=== PATIENT | male | born 1960 | race Two or more races ===

== ENCOUNTER 2018-12-14 06:51 | Day surgery (SDC) | payer MEDICARE, BC ==
[~2018-12-14] VITALS: Ht 177.8 cm; Wt 120.4 kg
[~2018-12-14 06:51] MED LIST: ACET325; ALPR.5 PO; BELPHEER PO; BISM87SU; CAND4 PO; DIPATRL; HYOS0.375T PO; LAMO100 PO; LITH300CA; LITH300ER PO; LORA1 PO; LOSA25 PO; MECL25 PO; ONDA8 PO; PRED20 PO; PROP80ER PO; RABE20 PO; RXDIPATR PO; VENL75ER PO
[2018-12-14] MEDS ORDERED: Synthroid100 MCG (07:35)
== END 2018-12-14 09:20 | disposition home or self-care (01) ==
LOC: ORSCSDS 06:51
PROVIDERS: Orthopaedic Surgery
PROC: 01N50ZZ Release Median Nerve, Open Approach (ICD-10-PCS; principal; 2018-12-14 08:20)
DX: G56.02 Carpal tunnel syndrome, left upper limb (principal); I10 Essential (primary) hypertension; G47.33 Obstructive sleep apnea (adult) (pediatric); E66.01 Morbid (severe) obesity due to excess calories; Z68.38 Body mass index [BMI] 38.0-38.9, adult; Z79.899 Other long term (current) drug therapy
CPT/HCPCS: J2250; J3010; J7120

== ENCOUNTER → 2019-02-28 | Outpatient (CLI) | payer MEDICARE, BC ==
[~2019-02-28] MED LIST changes: +ESCI20 PO; +Inderal40 MG PO; +LINE600 PO; +LOSARTAN POTAS100 MG PO; +Lamictal150 MG PO; +ROPI.25 PO; +Synthroid100 MCG; +TIROSINT200 MCG PO
== END | disposition home or self-care (01) ==
LOC: LAB 13:25 → LAB SHORT 13:25
DX: L08.0 Pyoderma (principal)
CPT/HCPCS: 87070; 87205

== ENCOUNTER 2019-03-27 19:16 | Inpatient (IN) | payer MEDICARE, BC ==
[~2019-03-27] VITALS: Ht 177.8 cm; Wt 123.0 kg
[~2019-03-27 19:16] MED LIST changes: +LEVSOD112 PO; -ROPI.25 PO; +Ropinirole HCl1 MG PO; -TIROSINT200 MCG PO
[2019-03-27] MEDS ORDERED: FOLI1 PO (19:49)
[2019-03-27] MEDS ORDERED: METTREX2.5 PO (19:49)
[2019-03-27 19:57] LABS: BASOPHILS ABSOLUTE AUTO 0.04 K/mm3 (0.00-0.23); BASOPHILS PERCENT AUTO 0 % (0-2); EOSINOPHILS ABSOLUTE AUTO 0.21 K/mm3 (0.00-0.68); EOSINOPHILS PERCENT AUTO 2 % (0-6); Hematocrit 45.4 % (37.0-53.0); Hemoglobin 14.7 g/dL (13.5-17.5); IMMATURE GRAN ABSOLUTE AUTO 0.13 K/mm3 (0.00-0.10); IMMATURE GRAN PERCENT AUTO 1 % (0-1); LYMPHOCYTES ABSOLUTE AUTO 2.71 K/mm3 (0.84-5.20); LYMPHOCYTES PERCENT AUTO 27 % (21-46); MONOCYTES ABSOLUTE AUTO 0.77 K/mm3 (0.16-1.47); MONOCYTES PERCENT AUTO 8 % (4-13); Mean Corpuscular HGB Conc 32.4 g/dL (31.5-36.5); Mean Corpuscular Volume 93 fL (80-100); NEUTROPHILS ABSOLUTE AUTO 6.13 K/mm3 (1.96-9.15); NEUTROPHILS PERCENT AUTO 61 % (41-73); Platelet Count 334 K/mm3 (150-400); RDW Coefficient Variation 12.5 % (11.7-14.2); RDW Standard Deviation 42.5 fL (35.1-46.3); White Blood Cell Count 9.99 K/mm3 (4.00-11.30)
[2019-03-27 20:29] LABS: Alanine Aminotransfer (ALT/SGP 42 U/L (12-78); Albumin, Blood 3.9 g/dL (3.4-5.0); Albumin/Globulin Ratio 1.1 (0.8-1.8); Alk Phos 85 U/L (50-136); Anion Gap 7 mmol/L (6-16); Aspartate Aminotrans (AST/SGOT 24 U/L (12-37); Bilirubin, Total 0.2 mg/dL (0.1-1.0); Blood Urea Nitrogen 20 mg/dL (8-24); Bun/Creatinine Ratio 17.9 (12.0-20.0); CO2, Blood 28 mmol/L (21-32); Chloride, Blood 104 mmol/L (98-108); Creatinine, Blood 1.12 mg/dL (0.60-1.20); Globulin, Blood 3.7 g/dL (2.2-4.0); Glomerular Filtration Rate >60 (60-); Glucose, Blood 148 mg/dL (70-99); Potassium, Blood 3.8 mmol/L (3.5-5.5); Sodium, Blood 139 mmol/L (136-145); Total Protein, Blood 7.6 g/dL (6.4-8.2); Troponin I <0.015 ng/mL (0.000-0.040)
[2019-03-27] MEDS ORDERED: IBUP400 PO (21:46)
[2019-03-27] MEDS ORDERED: CALCITRATE200 MG PO (21:46)
[2019-03-27 22:28] LABS: International Normalized Ratio 0.98; Prothrombin Time Results 10.4 Sec (9.7-11.5)
--- NOTE | 2019-03-27 23:51 | NUR ---
HEPARIN VERIFIED WITH JESSICA UPTON RN
[2019-03-28 01:52] LABS: CHOL/HDL RATIO 4.8; Cholesterol 143 mg/dL (50-200); HDL Cholesterol 30 mg/dL (>39); LDL/HDL RATIO 2.6; Low Density Lipoprotein Chol 77 mg/dL (0-110); Triglycerides 178 mg/dL (30-160); Very Low Density Lipoprot Chol 35 mg/dL (6-32)
--- NOTE | 2019-03-28 05:26 | NUR ---
assessed prior to am medication, no breathing, no lung or heart sound, no carotid pulse, no pupil response, informed family in room and charge nurse, cleaned up as much as possible, turned off iv pump and disconnected NC, offered condolances and assistance to family, closed door with fallen leaf
--- NOTE | 2019-03-28 07:18 | NUR ---
A+o, call light in reach, pain controlled with nitro and morphine, heparn drip, 2L via nc, able to make needs known, waiting for work up, walking rounds completed with day staff
--- NOTE | 2019-03-28 09:35 | NUR ---
CALLED HOSPITALIST PHARMACY NOTIFIED ME THAT THE METHOTREXATE DOSAGE FOR THIS PATIENT IS UNUSAL. I'VE CALLED THE HOSPITALIST AND LEFT A MESSAGE REGARDING THIS. PHARMACY WILL NOT ISSUE ME THE DRUG FOR ADMINISTRATION UNTIL VERIFIED AT THE CORRECT INTENDED DOSAGE BY THE PHYSICIAN.
--- NOTE | 2019-03-28 10:20 | NUR ---
CALLED [facility]/CALLED CONSULT - CARDIOLOGY:DR. RAGLAND HOSPITALIST REQUESTED I VERIFY METHOTREXATE DOSAGE W/PT'S PHARMACY. PHARMACY INFORMED ME THAT PT TAKES 5 TABLETS OF 2.5 MG ONCE A WEEK. INFORMED HOSPITALIST AND CHANGED OUR PHARMACY ORDER. HOSPITALIST REQUESTED I CALL CARDIOLOGY CONSULT:DR. RAGLAND AND INFORM HIM THAT THE PT IS STILL HAVING CHEST PAIN. I LEFT A MESSAGE WITH [facility] [employer] MACHINE OPERATOR. HOSPITALIST REQUESTED I CHANGE NITRO PASTE FROM ONE INCH TO AN INCH AND A HALF PER ADMINISTRATION. DOSAGE CHANGED WITH OUR PHARMACY.
--- NOTE | 2019-03-28 11:12 | NUR ---
Patient is lying in bed and alert with life partner, Don, bedside. Patient is kind and others focused and shares openly about his life and hira(Mormonism) journey. Patient spoke of the process of working through his fears while the pain and symptoms were intense. Patient stated that he is at peace with God and in his circumstances. I listened empathically,, reinforced helpful attitudes and practices, provided companionship and provided prayer. Patient responded well and showed signs of an elevated mood.
--- NOTE | 2019-03-28 17:41 | NUR ---
HANDOFF NOTE PT TRANSFERED TO [facility] FOR ANGIOGRAM WITHOUT INCIDENT. PERSONAL BELONGINGS GATHERED BY FAMILY AND TRANSPORTED BY THEM. PT TO BE TRANSFERED TO PCU FOLLOWING PROCEDURE. HANDOFF REPORT GIVEN TO PCU 12 NURSE [place]. INFORMED PCU NURSE OF PT'S DIAGNOSES, MEDICATIONS, HISTORY, AND OF CURRENT ANGIOGRAM BEING PERFORMED. PCU NURSE HAD NO FURTHER QUESTIONS.
--- NOTE | 2019-03-28 19:31 | NUR ---
the pt arrived from the heart center at 1815. Wound assessment of the right wrist has remained within normal expected limits post angio. Pt denies numbness, pain, tingling in the right arm and right hand. Denies chest pain, dyspnea. Vital signs have been stable. He ate dinner and drank cranberry juice, and took his oral medications without any difficulty. Bedside handoff given to Geno Bonilla RN.
--- NOTE | 2019-03-28 19:45 | NUR ---
ASSUMED CARE PT RESTING IN ROOM COMFORTABLY AT THIS TIME. PER DAY SHIFT PT CAME TO UNIT FROM RESIDENTIAL SALES EXECUTIVE S/P ANGIO. TR BAND TO R WRIST. SITE INSPECTED W/ DAY SHIFT RN, SITE NOTED TO HAVE DRIED BLOOD TO WRIST ADN UNDER TR BAND. PER DAY RN SITE BLED AFTER REMOVAL OF SHEATH AND HAS NOT BLED SINCE. DRIED BLOOD NOTED FOR FURTHER ASSESSMENT. 12CC OF AIR NOTED N TR BAND WILL START DEFLATING BAND AT 2014. SITE WNL, NO HEMATOMAS NOTED, GOOD CAP REFIL. PT REPORTS SOME SORENESS TO ARM AND CHEST BUT DENIES ANY FURTHER PAIN. WILL MEDICATE PER EMAR FOR PAIN. PT ALSO REPORTS HAS HX OF WILLIE AND USES CPAP AT HOME, PT IS DENYING HOSPITAL CPAP TONIGHT. PT EDUCATED ON NEED TO KEEP 02 LEVELS UP W/ WILLIE, AND PT AGREED TO USE 02 VIA NC IF O2 LEVELS DROP WHILE SLEEPING. DENIES OTHER NEEDS AT THSI TIME. PT EDUCATED ON NEED TO DEFLATE TR BAND SLOWLY EVERY HOUR T/O NIGHT. CALL LIGHT IN REACH.
[2019-03-29 03:36] LABS: BASOPHILS ABSOLUTE AUTO 0.05 K/mm3 (0.00-0.23); BASOPHILS PERCENT AUTO 1 % (0-2); EOSINOPHILS ABSOLUTE AUTO 0.24 K/mm3 (0.00-0.68); EOSINOPHILS PERCENT AUTO 3 % (0-6); Hematocrit 42.9 % (37.0-53.0); Hemoglobin 13.4 g/dL (13.5-17.5); IMMATURE GRAN ABSOLUTE AUTO 0.11 K/mm3 (0.00-0.10); IMMATURE GRAN PERCENT AUTO 1 % (0-1); LYMPHOCYTES ABSOLUTE AUTO 2.09 K/mm3 (0.84-5.20); LYMPHOCYTES PERCENT AUTO 22 % (21-46); MONOCYTES ABSOLUTE AUTO 0.63 K/mm3 (0.16-1.47); MONOCYTES PERCENT AUTO 7 % (4-13); Mean Corpuscular HGB 30.4 pg (26.0-34.0); Mean Corpuscular HGB Conc 31.2 g/dL (31.5-36.5); Mean Corpuscular Volume 97 fL (80-100); NEUTROPHILS ABSOLUTE AUTO 6.59 K/mm3 (1.96-9.15); NEUTROPHILS PERCENT AUTO 68 % (41-73); Platelet Count 295 K/mm3 (150-400); RDW Coefficient Variation 12.5 % (11.7-14.2); Red Blood Cell Count 4.41 M/mm3 (4.30-5.90); White Blood Cell Count 9.71 K/mm3 (4.00-11.30)
[2019-03-29 03:52] LABS: Anion Gap 8 mmol/L (6-16); Blood Urea Nitrogen 14 mg/dL (8-24); Bun/Creatinine Ratio 13.6 (12.0-20.0); CO2, Blood 25 mmol/L (21-32); Calcium, Blood 7.8 mg/dL (8.5-10.1); Chloride, Blood 107 mmol/L (98-108); Creatinine, Blood 1.03 mg/dL (0.60-1.20); Glomerular Filtration Rate >60 (60-); Glucose, Blood 108 mg/dL (70-99); Sodium, Blood 140 mmol/L (136-145)
--- NOTE | 2019-03-29 06:05 | NUR ---
SHIFT SUMMARY PT SLEEPING IN ROOM COMFORTABLY AT THIS TIME. NO ACUTE CHANGES IN STATUS OVERNIGHT. TR BAND WAS DEFLATED AND REMOVED, SITE WNL, NO HEMATOMAS NOTED GOOD CAP REFIL, TEGADERM AND ARMBOARD IN PLACE. PT C/O PAIN IN ARM AND CHEST FROM PROCEDURE AND WAS MEDICATED PER EMAR. RESP EVEN UNLABORED ON RA W/ SATS >92%. PT DENIES OTHER NEEDS. INDEPENDENT IN ROOM. CALLS APPROPRIATELY. CALL LIGHT IN REACH.
[2019-03-29] MEDS ORDERED: ATOR40TA PO (10:36)
[2019-03-29] MEDS ORDERED: Isosorbide Mono30 MG PO (10:37)
[2019-03-29] MEDS ORDERED: CARV3.125 PO (10:37)
[2019-03-29] MEDS ORDERED: NITR.4SL SL (10:38)
[2019-03-29] MEDS ORDERED: ASPI81CH PO (10:46)
== END 2019-03-29 11:35 | disposition home or self-care (01) | DRG 287 ==
LOC: ER 19:16 → MEDS 19:17 → PCU 03-28 16:49
PROVIDERS: Internal Medicine Cardiovascular Disease; Physician Assistant; ADMIT Hospitalist
PROC: B2111ZZ Fluoroscopy of Multiple Coronary Arteries using Low Osmolar Contrast (ICD-10-PCS; principal; 2019-03-28)
PROC: 4A033BC Measurement of Arterial Pressure, Coronary, Percutaneous Approach (ICD-10-PCS; 2019-03-28)
DX: I25.110 Atherosclerotic heart disease of native coronary artery with unstable angina pectoris (principal); G89.29 Other chronic pain; I10 Essential (primary) hypertension; F32.9 Major depressive disorder, single episode, unspecified; Z87.891 Personal history of nicotine dependence; E66.01 Morbid (severe) obesity due to excess calories; Z68.38 Body mass index [BMI] 38.0-38.9, adult; Z98.1 Arthrodesis status; L40.9 Psoriasis, unspecified; R73.9 Hyperglycemia, unspecified; G47.33 Obstructive sleep apnea (adult) (pediatric)
CPT/HCPCS: 36415; 71046; 80048; 80053; 80061; 83036; 84484; 85025; 85347; 85610; 85730; 87081; 93005; 93010; 93306; 93454; 93571; 99152; 99153; 99285-25; C1769; C1887; C1894; J0153; J1644; J2250; J2270; J3010; J7030; J7040; Q9967

== ENCOUNTER 2019-07-10 06:14 | Day surgery (SDC) | payer MEDICARE, BC ==
[~2019-07-10] VITALS: Ht 177.8 cm; Wt 119.0 kg
[~2019-07-10 06:14] MED LIST changes: +ASPI81CH PO; +ATOR40TA PO; +CALCITRATE200 MG PO; +CARV3.125 PO; +FOLI1 PO; +IBUP400 PO; +Isosorbide Mono30 MG PO; +METTREX2.5 PO; +NITR.4SL SL
== END 2019-07-10 08:40 | disposition home or self-care (01) ==
LOC: ORSCSDS 06:14
PROVIDERS: Orthopaedic Surgery
PROC: 0LN70ZZ Release Right Hand Tendon, Open Approach (ICD-10-PCS; principal; 2019-07-10 07:30)
PROC: 01N50ZZ Release Median Nerve, Open Approach (ICD-10-PCS; principal; 2019-07-10 07:30)
DX: M65.331 Trigger finger, right middle finger (principal); G56.01 Carpal tunnel syndrome, right upper limb; I10 Essential (primary) hypertension; G47.33 Obstructive sleep apnea (adult) (pediatric); K21.9 Gastro-esophageal reflux disease without esophagitis; E66.9 Obesity, unspecified; Z68.37 Body mass index [BMI] 37.0-37.9, adult; Z79.899 Other long term (current) drug therapy
CPT/HCPCS: J2250; J2704; J3010; J7120

== ENCOUNTER 2019-08-02 17:55 | Observation (INO) | payer MEDICARE, BC ==
[~2019-08-02] VITALS: Ht 177.8 cm; Wt 115.5 kg
[2019-08-02 20:41] LABS: BASOPHILS ABSOLUTE AUTO 0.03 K/mm3 (0.00-0.23); BASOPHILS PERCENT AUTO 0 % (0-2); EOSINOPHILS ABSOLUTE AUTO 0.19 K/mm3 (0.00-0.68); EOSINOPHILS PERCENT AUTO 2 % (0-6); Hematocrit 41.7 % (37.0-53.0); Hemoglobin 13.6 g/dL (13.5-17.5); IMMATURE GRAN ABSOLUTE AUTO 0.03 K/mm3 (0.00-0.10); IMMATURE GRAN PERCENT AUTO 0 % (0-1); LYMPHOCYTES ABSOLUTE AUTO 2.29 K/mm3 (0.84-5.20); LYMPHOCYTES PERCENT AUTO 29 % (21-46); MONOCYTES ABSOLUTE AUTO 0.63 K/mm3 (0.16-1.47); MONOCYTES PERCENT AUTO 8 % (4-13); Mean Corpuscular HGB 31.4 pg (26.0-34.0); Mean Corpuscular HGB Conc 32.6 g/dL (31.5-36.5); Mean Corpuscular Volume 96 fL (80-100); Mean Platelet Volume 9.8 fL (9.1-12.4); NEUTROPHILS ABSOLUTE AUTO 4.65 K/mm3 (1.96-9.15); NEUTROPHILS PERCENT AUTO 59 % (41-73); Platelet Count 325 K/mm3 (150-400); RDW Coefficient Variation 13.1 % (11.7-14.2); RDW Standard Deviation 45.9 fL (35.1-46.3); Red Blood Cell Count 4.33 M/mm3 (4.30-5.90); White Blood Cell Count 7.82 K/mm3 (4.00-11.30)
[2019-08-02 20:44] LABS: Alanine Aminotransfer (ALT/SGP 43 U/L (12-78); Albumin/Globulin Ratio 1.1 (0.8-1.8); Alk Phos 69 U/L (50-136); Anion Gap 3 mmol/L (6-16); Aspartate Aminotrans (AST/SGOT 40 U/L (12-37); Bilirubin, Total 0.3 mg/dL (0.1-1.0); Blood Urea Nitrogen 15 mg/dL (8-24); Bun/Creatinine Ratio 15.1 (12.0-20.0); CO2, Blood 28 mmol/L (21-32); Calcium, Blood 8.6 mg/dL (8.5-10.1); Chloride, Blood 105 mmol/L (98-108); Creatinine, Blood 0.99 mg/dL (0.60-1.20); Globulin, Blood 3.6 g/dL (2.2-4.0); Glomerular Filtration Rate >60 (60-); Glucose, Blood 89 mg/dL (70-99); Potassium, Blood 4.2 mmol/L (3.5-5.5); Sodium, Blood 136 mmol/L (136-145); Total Protein, Blood 7.6 g/dL (6.4-8.2); Troponin I <0.015 ng/mL (0.000-0.040)
[2019-08-03 02:52] LABS: Hematocrit 44.3 % (37.0-53.0); Hemoglobin 14.1 g/dL (13.5-17.5); Mean Corpuscular HGB 30.8 pg (26.0-34.0); Mean Corpuscular HGB Conc 31.8 g/dL (31.5-36.5); Mean Corpuscular Volume 97 fL (80-100); Mean Platelet Volume 9.9 fL (9.1-12.4); Platelet Count 324 K/mm3 (150-400); RDW Coefficient Variation 13.2 % (11.7-14.2); RDW Standard Deviation 46.3 fL (35.1-46.3); Red Blood Cell Count 4.58 M/mm3 (4.30-5.90); White Blood Cell Count 8.15 K/mm3 (4.00-11.30)
[2019-08-03 03:11] LABS: Alanine Aminotransfer (ALT/SGP 40 U/L (12-78); Albumin/Globulin Ratio 1.1 (0.8-1.8); Alk Phos 65 U/L (50-136); Anion Gap 7 mmol/L (6-16); Aspartate Aminotrans (AST/SGOT 33 U/L (12-37); Bilirubin, Total 0.4 mg/dL (0.1-1.0); Blood Urea Nitrogen 14 mg/dL (8-24); CO2, Blood 28 mmol/L (21-32); Calcium, Blood 8.5 mg/dL (8.5-10.1); Chloride, Blood 105 mmol/L (98-108); Creatinine, Blood 1.08 mg/dL (0.60-1.20); Globulin, Blood 3.5 g/dL (2.2-4.0); Glomerular Filtration Rate >60 (60-); Glucose, Blood 98 mg/dL (70-99); Potassium, Blood 3.9 mmol/L (3.5-5.5); Sodium, Blood 140 mmol/L (136-145); Total Protein, Blood 7.5 g/dL (6.4-8.2)
[2019-08-03 03:12] LABS: CPK Creatine Kinase 245 U/L (39-308); Troponin I <0.015 ng/mL (0.000-0.040)
[2019-08-03 12:05] LABS: CPK Creatine Kinase 237 U/L (39-308); Troponin I <0.015 ng/mL (0.000-0.040)
--- NOTE | 2019-08-03 13:09 | NUR ---
SPOKE TO DR. HAWKINS TO CLARIFY ORDERS ON PATIENT. STATED TO DC HEPARIN DRIP AND NITRO DRIP. STATED OKAY FOR PATIENT TO BE ON CARDIAC DIET. STATED THAT PATIENT COULD BE DC'D HOME 1 HOUR AFTER TR BAND CUFF DEFLATED IF NO BLEEDING, HEMATOMA OR BRUISING NOTED. STATED TO INCREASE IMDUR FROM 30 MG TO 60 MG DAILY. STATED THAT PATIENT WILL NEED TO BE SEEN OUTPATIENT 1 WEEKS FROM DISCHARGE IN HIS OFFICE.
--- NOTE | 2019-08-03 13:17 | NUR ---
INITIAL ASSESSMENT PATIENT ARRIVED TO UNIT AT 1250. PATIENT ALERT AND ORIENTED X 4, AFEBRILE. PATIENT DOES REPORT N/T IN L HAND AND ARM THAT STARTED WHEN CHEST PAIN STARTED. PATIENT STATES HE HAS 4/10 SHARP CHEST PAIN AT THIS TIME. PATIENT SATTING 90% AND GREATER ON RA. LUNGS CLEAR IN UPPER LOBES AND DIMINISHED IN LOWER LOBES. PATIENT IN SB, HR IN THE 50S. BP STABLE. BLE PULSES 1+. GI AND WNL. PATIENT'S LAST BM YESTERDAY. IV FLUSHED AND SALINE LOCKED. TR BAND IN PLACE TO R RADIAL SITE WITH 13 CC AIR INSTILLED. NO BLEEDING, BRUISING, HEMATOMA NOTED. PATIENT ORIENTED TO UNIT, ROOM AND CALL SYSTEM. BED LOW, CALL LIGHT IN REACH. WILL CONTINUE TO MONITOR PATIENT FREQUENTLY THROUGHOUT SHIFT.
--- NOTE | 2019-08-03 16:15 | NUR ---
2 CC AIR DEFLATED FROM TR BAND. SITE REMAINS WNL. WILL CONTINUE TO MONITOR.
--- NOTE | 2019-08-03 16:29 | NUR ---
2 CC AIR DEFLATED FROM TR BAND. SITE REMAINS WNL. WILL CONTINUE TO MONITOR.
--- NOTE | 2019-08-03 16:44 | NUR ---
2 CC AIR DEFLATED FROM TR BAND. SITE REMAINS WNL. WILL CONTINUE TO MONITOR.
--- NOTE | 2019-08-03 16:44 | NUR ---
PATIENT RESTING QUIETLY IN BED. NO COMPLAINTS. VITAL SIGNS STABLE. NO ACUTE CHANGES TO NOTE ON. SLOWLY DEFLATING TR BAND. WILL CONTINUE TO MONITOR.
--- NOTE | 2019-08-03 17:08 | NUR ---
2 CC AIR DEFLATED FROM TR BAND. SITE REMAINS WNL. WILL CONTINUE TO MONITOR.
--- NOTE | 2019-08-03 17:25 | NUR ---
2 CC AIR DEFLATED. SITE REMAINS WNL. WILL CONTINUE TO MONITOR.
--- NOTE | 2019-08-03 17:43 | NUR ---
3 CC AIR DEFLATED FROM TR BAND. TR BAND NOW FULLY DEFLATED. TR BAND AND ARMBOARD REMAIN IN PLACE. SITE REMAINS STABLE. NO BLEEDING, BRUISING OR HEMATOMA NOTED. WILL CONTINUE TO MONITOR.
--- NOTE | 2019-08-03 18:40 | NUR ---
SHIFT SUMMARY PATIENT REMAINED ALERT AND ORIENTED X 4, AFEBRILE. PATIENT HAD LEFT SIDED CHEST PAIN EARLIER IN SHIFT AND RECEIVED 2 PRN DOSES OF FENTANYL. PATIENT HAS NOT HAD ANY COMPLAINTS OF PAIN SINCE. PATIENT BEGAN SHIFT ON RA BUT WAS INCREASED TO 2 L NC TO KEEP SATS 90% AND GREATER. PATIENT HAS BEEN IN SB TO SR, HR 50S TO 70S. BP HAS REMAINED STABLE. GI WNL. PATIENT HAS HAD GOOD APPETITE. WNL. TR BAND TO R RADIAL SITE HAS BEEN COMPLETELY DEFLATED. TR BAND AND ARMBOARD REMAIN IN PLACE. PATIENT HAS HAD NO BLEEDING, BRUISING, OR HEMATOMA NOTED. IV REMAINS SALINE LOCKED. PLAN IS FOR PATIENT TO DISCHARGE HOME TOMORROW PER DR. ZAMBRANO. PATIENT HAS NO COMPLAINTS AT THIS TIME. BED LOW, CALL LIGHT IN REACH. WILL BE GIVING REPORT TO ONCOMING PARLIAMENTARY COUNSEL NURSE SHORTLY.
--- NOTE | 2019-08-03 21:51 | NUR ---
ASSUMED CARE OF PT, REPORT RCV'D FROM DAVID RENAE. PT ALERT AND ORIENTED SITTING UP IN BED, PT'S SO AT BEDSIDE. PT REPORTS CHEST PAIN OF 3/10 WITH NO NEW OR WORSENING SYMPTOMS. PT REMINDED TO REPORT NEW OR WORSENING PAIN TO MEDICAL STAFF IMMEDIATELY. TR BAND DEFLATED AND IN PLACE ON RIGHT WRIST WITH ARMBOARD. TR BAND REMOVED AND CLEAR DRESSING PLACED. DISTAL PULSE/PALLOR WNL. SITE SOFT/NON-TENDER, NO HEMATOMA. PT REMINDED TO KEEP ARMBOARD IN PLACE AND TO MINIMIZE MOVEMENT. SEE FULL SHIFT ASSESSMENT.
--- NOTE | 2019-08-04 05:29 | NUR ---
SHIFT SUMMARY NO ACUTE CHANGES OVERNIGHT. PT SLEPT WELL. NO COMPLAINT OF PAIN OR SHORTNESS OF BREATH. VSS T/O SHIFT. RIGHT RADIAL SITE REMAINS UNCHANGED, CLEAR DRESSING IN PLACE. WILL REPORT TO DAYSHIFT NURSE.
--- NOTE | 2019-08-04 08:35 | NUR ---
INITIAL ASSESSMENT PATIENT ALERT AND ORIENTED X 4, AFEBRILE. PATIENT DENIES N/T. PATIENT AMBULATING WELL SBA. PATIENT STATES HE HAS SMALL AMOUNT OF CHEST PRESSURE WITH EXERTION BUT OTHERWISE NO COMPLAINTS. PATIENT SATTING 90% AND GREATER ON RA. PATIENT IN SR WITH FIRST DEGREE AV BLOCK. HR IN THE 60S. BP STABLE. GI AND WNL. R RADIAL SITE WNL. TEGADERM IN PLACE. NO BLEEDING, BRUISING, HEMATOMA NOTED. ARMBOARD IN PLACE. IV FLUSHED AND SALINE LOCKED. BED LOW, CALL LIGHT IN REACH. WILL CONTINUE TO MONITOR PATIENT FREQUENTLY THROUGHOUT SHIFT.
[2019-08-04] MEDS ORDERED: CLOP75 PO (10:37)
--- NOTE | 2019-08-04 11:20 | NUR ---
SHIFT SUMMARY PATIENT REMAINED ALERT AND ORIENTED, AFEBRILE. VITAL SIGNS STABLE. R RADIAL SITE REMAINED WNL WITH NO BLEEDING, BRUISING, OR HEMATOMA NOTED. PATIENT'S SIGNIFICANT OTHER HERE TO PICK HIM UP. PATIENT GIVEN DISCHARGE INSTRUCTIONS AND STATES THAT HE UNDERSTANDS. ALL QUESTIONS ANSWERED. PATIENT TAKEN OUT IN WHEELCHAIR BY PRIMARY NURSE TO SIGNIFICANT OTHER'S CAR. PATIENT SUCCESSFULLY DISCHARGED.
== END 2019-08-04 11:25 | disposition home or self-care (01) ==
LOC: ER 17:55 → ERHOLD 17:56 → ICUW 08-03 12:50
PROVIDERS: Emergency Medicine; ADMIT Internal Medicine
DX: I25.110 Atherosclerotic heart disease of native coronary artery with unstable angina pectoris (principal); I10 Essential (primary) hypertension; I25.10 Atherosclerotic heart disease of native coronary artery without angina pectoris; K21.9 Gastro-esophageal reflux disease without esophagitis; F32.9 Major depressive disorder, single episode, unspecified; E03.9 Hypothyroidism, unspecified; G47.30 Sleep apnea, unspecified; E66.01 Morbid (severe) obesity due to excess calories; Z68.37 Body mass index [BMI] 37.0-37.9, adult; Z79.899 Other long term (current) drug therapy; Z79.82 Long term (current) use of aspirin; Z88.1 Allergy status to other antibiotic agents; Z88.2 Allergy status to sulfonamides; Z88.8 Allergy status to other drugs, medicaments and biological substances
CPT/HCPCS: 36415; 71046; 80053; 82550; 83880; 84484; 85025; 85027; 85347; 85730; 93005; 93010; 93458; 93571; 96374; 96375; 99152; 99153; 99285-25; C1769; C1887; C1894; G0378; J1644; J2250; J2405; J3010; J7030; Q9967

== ENCOUNTER → 2023-01-05 | Outpatient (CLI) | payer MEDICARE, BC ==
[~2023-01-05] MED LIST changes: +ALBU90OI INH; +CLOP75 PO; +DOCU100 PO; +GUANFACINE HCL E2 MG PO; +MIRALAX17 GM PO; +Norco 10-325 T1 EACH PO; +PANT20 PO; +RANEXA1000 M4 PO; +TICA90TA PO
[2023-01-05 13:35] LABS: Campylobacter Sp Not Detected (NOT DETECT)
[2023-01-05 13:36] LABS: Adenovirus F 40/41 Not Detected (NOT DETECT); Astrovirus Not Detected (NOT DETECT); Cryptosporidium Not Detected (NOT DETECT); Cyclospora Cayetanensis Not Detected (NOT DETECT); E. Coli O157 Not Detected (NOT DETECT); Entamoeba Histolytica Not Detected (NOT DETECT); Enteroaggregative E. coli-EAEC Not Detected (NOT DETECT); Enteropathogenic E. coli-EPEC Not Detected (NOT DETECT); Enterotoxigenic E. coli-ETEC Not Detected (NOT DETECT); Giardia Lamblia Not Detected (NOT DETECT); Norovirus GI/GII Not Detected (NOT DETECT); Plesiomonas Shigelloides Not Detected (NOT DETECT); Rotavirus A Not Detected (NOT DETECT); Salmonella Sp Not Detected (NOT DETECT); Sapovirus Not Detected (NOT DETECT); Shiga Toxin-prod E. coli-STEC Not Detected (NOT DETECT); Shigella/Enteroin E. coli-EIEC Not Detected (NOT DETECT); Vibrio Cholerae Not Detected (NOT DETECT); Vibrio Sp Not Detected (NOT DETECT); Yersinia Enterocolitica Not Detected (NOT DETECT)
== END | disposition home or self-care (01) ==
LOC: LAB SHORT 09:38 → LAB 09:38 → EDSTATUS 01-04 16:50 → LAB FUT 01-04 16:50
PROVIDERS: Family Medicine
DX: R19.7 Diarrhea, unspecified (principal)
CPT/HCPCS: 87507

== ENCOUNTER → 2024-02-20 | Outpatient (CLI) | payer MEDICARE, BC ==
[~2024-02-20] MED LIST changes: +BACL10; +CIPR500 PO; +CIPR750 PO; +Calcium Acetat667 MG; +FLUT1DIS2 INH; +METR500; +NYSTRIT TOP; +OXYC5 PO; +Voltaren100 GM
[2024-02-20 17:12] LABS: Adenovirus F 40/41 Not Detected (NOT DETECT); Astrovirus Not Detected (NOT DETECT); Campylobacter Sp Not Detected (NOT DETECT); Cryptosporidium Not Detected (NOT DETECT); Cyclospora Cayetanensis Not Detected (NOT DETECT); E. Coli O157 Not Detected (NOT DETECT); Entamoeba Histolytica Not Detected (NOT DETECT); Enteroaggregative E. coli-EAEC Not Detected (NOT DETECT); Enteropathogenic E. coli-EPEC Not Detected (NOT DETECT); Enterotoxigenic E. coli-ETEC Not Detected (NOT DETECT); Giardia Lamblia Not Detected (NOT DETECT); Norovirus GI/GII Not Detected (NOT DETECT); Plesiomonas Shigelloides Not Detected (NOT DETECT); Rotavirus A Not Detected (NOT DETECT); Salmonella Sp Not Detected (NOT DETECT); Sapovirus Not Detected (NOT DETECT); Shiga Toxin-prod E. coli-STEC Not Detected (NOT DETECT); Shigella/Enteroin E. coli-EIEC Not Detected (NOT DETECT); Vibrio Cholerae Not Detected (NOT DETECT); Vibrio Sp Not Detected (NOT DETECT); Yersinia Enterocolitica Not Detected (NOT DETECT)
== END | disposition home or self-care (01) ==
LOC: LAB SHORT 14:04 → LAB 14:04
PROVIDERS: Family Medicine
DX: R19.7 Diarrhea, unspecified (principal)
CPT/HCPCS: 87507

== ENCOUNTER 2024-04-18 08:53 | Emergency (ER) | payer MEDICARE, BC ==
[~2024-04-18] VITALS: Ht 172.7 cm; Wt 111.1 kg
[2024-04-18] MEDS ORDERED: TRELEGY ELLIPT1 EACH INH (09:07)
[2024-04-18] MEDS ORDERED: FUROSEMIDE20 MG PO (09:10)
[2024-04-18] MEDS ORDERED: Inderal40 MG PO (09:10)
[2024-04-18] MEDS ORDERED: CALCIUM CITRAT250 MG PO (09:11)
[2024-04-18 09:30] LABS: BASOPHILS ABSOLUTE AUTO 0.07 K/mm3 (0.00-0.23); BASOPHILS PERCENT AUTO 1 % (0-2); EOSINOPHILS ABSOLUTE AUTO 0.22 K/mm3 (0.00-0.68); EOSINOPHILS PERCENT AUTO 2 % (0-6); Hematocrit 47.1 % (37.0-53.0); Hemoglobin 15.4 g/dL (13.5-17.5); IMMATURE GRAN ABSOLUTE AUTO 0.19 K/mm3 (0.00-0.10); IMMATURE GRAN PERCENT AUTO 2 % (0-1); LYMPHOCYTES ABSOLUTE AUTO 2.04 K/mm3 (0.84-5.20); LYMPHOCYTES PERCENT AUTO 21 % (21-46); MONOCYTES ABSOLUTE AUTO 0.67 K/mm3 (0.16-1.47); MONOCYTES PERCENT AUTO 7 % (4-13); Mean Corpuscular HGB 30.9 pg (26.0-34.0); Mean Corpuscular HGB Conc 32.7 g/dL (31.5-36.5); Mean Corpuscular Volume 94 fL (80-100); Mean Platelet Volume 9.8 fL (9.1-12.4); NEUTROPHILS ABSOLUTE AUTO 6.47 K/mm3 (1.96-9.15); NEUTROPHILS PERCENT AUTO 67 % (41-73); Platelet Count 309 K/mm3 (150-400); RDW Coefficient Variation 12.3 % (11.7-14.2); RDW Standard Deviation 42.7 fL (35.1-46.3); Red Blood Cell Count 4.99 M/mm3 (4.30-5.90); White Blood Cell Count 9.66 K/mm3 (4.00-11.30)
[2024-04-18 09:48] LABS: Albumin, Blood 3.8 g/dL (3.4-5.0); Albumin/Globulin Ratio 1.1 (0.8-1.8); Bilirubin, Total 0.5 mg/dL (0.1-1.0); Calcium, Blood 8.1 mg/dL (8.5-10.1); Creatinine, Blood 1.14 mg/dL (0.60-1.20); Globulin, Blood 3.6 g/dL (2.2-4.0); Potassium, Blood 4.1 mmol/L (3.5-5.5); Total Protein, Blood 7.4 g/dL (6.4-8.2)
[2024-04-18] MEDS ORDERED: Aspirin 325 MG Tab PO ONE (10:00)
[2024-04-18] MEDS ORDERED: Ondansetron HCl 2 MG / ML 2ML Vial IV ONE (10:25)
[2024-04-18 11:33] LABS: Influenza A, PCR NEGATIVE (NEGATIVE); Influenza B, PCR NEGATIVE (NEGATIVE); Resp Syncytial Virus, PCR NEGATIVE (NEGATIVE); SARS-Cov-2 (COVID-19) PCR, MMC NEGATIVE (NEGATIVE)
[2024-04-18 13:00] VITALS: BP 168/91
== END 2024-04-18 13:12 | disposition home or self-care (01) ==
LOC: ER 08:53
PROVIDERS: Student in an Organized Health Care Education/Training Program
DX: R07.9 Chest pain, unspecified (principal); R53.1 Weakness; I10 Essential (primary) hypertension; G47.30 Sleep apnea, unspecified; Z87.891 Personal history of nicotine dependence; Z79.82 Long term (current) use of aspirin; Z79.899 Other long term (current) drug therapy; Z79.51 Long term (current) use of inhaled steroids; Z88.2 Allergy status to sulfonamides; Z88.1 Allergy status to other antibiotic agents
CPT/HCPCS: 0241U; 71046; 80053; 83735; 84484; 85025; 93005; 93010; 96374; 99285-25; A9270; J2405

== ENCOUNTER 2024-05-01 10:32 | Day surgery (SDC) | payer MEDICARE, BC ==
[~2024-05-01] VITALS: Ht 177.8 cm; Wt 119.6 kg
[~2024-05-01 10:32] MED LIST changes: +CALCIUM CITRAT250 MG PO; +FUROSEMIDE20 MG PO; +Lactated Ringer's 1,000 ML IV ONE; +Lactated Ringer's 1,000 ML ONE; +TRELEGY ELLIPT1 EACH INH
[2024-05-01] MEDS ORDERED: SKYRIZI PE150 MG/1 M SQ (10:59)
[2024-05-01] MEDS ORDERED: Clindamycin 900mg in D5W 50ML 50 ML IV ONE (11:18)
[2024-05-01] MEDS ORDERED: Lactated Ringer's 1,000 ML IV ONE ×2 (11:27→14:21)
--- NOTE | 2024-05-01 11:45 | NUR ---
05/01/24 1145 Yarely Samson PT HAS LISTED ALLERGY TO IODINE CONTRAST. PT STATED HE DID NOT REMEMBER HAVING A REACTION TO IODINE IN THE PAST. IODINE SKIN TEST DONE ON LFA AND NO REACTION NOTED.
[2024-05-01] MEDS ORDERED: Midazolam HCl 1MG / ML 2ML Vial ONE (12:03)
[2024-05-01] MEDS ORDERED: Rocuronium Bromide 10 MG/ML 5ML Injection IV ONE (12:17)
[2024-05-01] MEDS ORDERED: propofoL 20 ML IV ONE (12:17)
[2024-05-01] MEDS ORDERED: FentaNYL Citrate 50 MCG/ML 2 ML Injection ONE ×2 (12:17→14:14)
[2024-05-01] MEDS ORDERED: Bupivacaine HCl 0.25% 30 ML Injection XX ONE (12:57)
[2024-05-01] MEDS ORDERED: EPINEPhrine HCl 1 MG/ML 1ML Amp XX ONE (12:57)
[2024-05-01] MEDS ORDERED: Sugammadex Sodium 200 MG/2ML SDV (100 MG/ML) ONE (13:01)
--- NOTE | 2024-05-01 13:31 | NUR ---
05/01/24 1331 Lucy Mcdonald 0.1ML OF EPI 1MG/ML ADDED TO 10ML BUPICVICANE 0.25% TO CREATE LOCAL SOLUTION OF 0.25% BUPIVICAINE W/EPI 1:100,000.
--- NOTE | 2024-05-01 13:32 | NUR ---
05/01/24 1332 CATHIE LONDONO TRIAL FROM 15L TO 10L VIA NON-LANEY. PT WAKES EASILY/TO VOICE
--- NOTE | 2024-05-01 13:57 | NUR ---
05/01/24 7247 CATHIE LONDONO HAD TO PUT PT BACK OM O2 DECREASED INTO LOW 80'S. INITIALLY WHEN UP AND INTO CHAIR, O2 WAS 95% ON RA. THEN DROPPED.
[2024-05-01 14:32] VITALS: BP 125/68
== END 2024-05-01 16:25 | disposition home or self-care (01) ==
LOC: ORSCSDS 10:32
PROVIDERS: Otolaryngology
PROC: 0CB70ZX Excision of Tongue, Open Approach, Diagnostic (ICD-10-PCS; principal; 2024-05-01 14:00)
DX: D10.1 Benign neoplasm of tongue (principal); K14.8 Other diseases of tongue; I10 Essential (primary) hypertension; I25.10 Atherosclerotic heart disease of native coronary artery without angina pectoris; G47.33 Obstructive sleep apnea (adult) (pediatric); E03.9 Hypothyroidism, unspecified; E66.9 Obesity, unspecified; Z68.37 Body mass index [BMI] 37.0-37.9, adult; Z79.899 Other long term (current) drug therapy
CPT/HCPCS: 88305; J0171; J2250; J2704; J3010; J7120

== ENCOUNTER → 2025-04-05 | Outpatient (CLI) | payer MEDICARE, BC ==
[~2025-04-05] MED LIST changes: -Lactated Ringer's 1,000 ML IV ONE; -Lactated Ringer's 1,000 ML ONE; +SKYRIZI PE150 MG/1 M SQ
== END ==
LOC: LAB 10:20 → LAB SHORT 10:20
DX: N39.0 Urinary tract infection, site not specified (principal)
CPT/HCPCS: 87086